=== PATIENT | male | born 1945 | race Caucasian/White ===

== ENCOUNTER 2023-07-03 06:47 | Day surgery (SDC) | payer OTHER ==
[2023-07-03] MEDS ORDERED: fentaNYL 100 MCG/2 ML SDV ONE (07:20)
[2023-07-03] MEDS ORDERED: Propofol 200 MG/20 ML SDV ONE (07:20)
[2023-07-03] MEDS ORDERED: Lactated Ringers 1,000 ML IV SCH (07:30)
== END 2023-07-03 08:10 | disposition home or self-care (01) ==
LOC: JP.SDS 06:47
PROVIDERS: ATTEND Family Medicine
DX: R07.9 Chest pain, unspecified (principal); G89.29 Other chronic pain; K21.9 Gastro-esophageal reflux disease without esophagitis; I25.10 Atherosclerotic heart disease of native coronary artery without angina pectoris; Z95.5 Presence of coronary angioplasty implant and graft; Z53.8 Procedure and treatment not carried out for other reasons
CPT/HCPCS: J2704; J3010; J7120